=== PATIENT | male | born 1955 ===

== ENCOUNTER 2020-12-07 14:43 | Emergency (ER) | payer OTHER ==
[2020-12-07 15:10] VITALS: TEMP 98.5; BMI 25.6
[2020-12-07 16:40] LABS: BASO % 0.5 % (0-2.0); EOS % 4.5 % (0-4.5); HEMATOCRIT 33.5 % (35.4-49); HEMOGLOBIN 11.3 GM/dL (11.7-16.9); MCH 33.2 pg (25.7-33.7); MCHC 33.9 g/dl (32.0-35.9); MEAN PLT VOLUME 9.8 fl (7.5-11.1); MONO % 15.5 % (3.8-10.2); NEUT % 61.5 % (42.8-82.8); PLATELET COUNT 126 K/MM3 (134-434); RBC 3.42 M/mm3 (4.00-5.60); RDW 14.7 % (11.9-15.9); VENOUS O2 SATURATION 60.7 % (70-80); VENOUS PCO2 44.3 mmHg (38-52); VENOUS PH 7.444 (7.310-7.410); WHITE BLOOD COUNT 5.4 K/mm3 (4.0-10.0)
[2020-12-07 16:46] LABS: INR 0.91 (0.83-1.09); PROTHROMBIN TIME (PATIENT) 11.2 SEC (9.7-13.0)
[2020-12-07 16:59] LABS: CHLORIDE 97 mmol/L (98-107); POTASSIUM 3.4 mmol/L (3.5-5.1); SODIUM 136 mmol/L (136-145)
[2020-12-07 17:01] LABS: CALCIUM 10.1 mg/dL (8.5-10.1)
[2020-12-07 17:02] LABS: ALBUMIN 4.3 g/dl (3.4-5.0); ANION GAP 7 MMOL/L (8-16); BLOOD UREA NITROGEN 27.9 mg/dL (7-18); CO2 32 mmol/L (21-32); GLUCOSE,RANDOM 102 mg/dL (74-106); MAGNESIUM 2.3 mg/dL (1.8-2.4)
[2020-12-07 17:05] LABS: CREATININE 3.1 mg/dL (0.55-1.3); SGOT/AST 38 U/L (15-37); SGPT/ALT 48 U/L (13-61)
[2020-12-07 17:06] LABS: BILIRUBIN,TOTAL 0.5 mg/dL (0.2-1); TOT PROT 7.7 g/dl (6.4-8.2)
[2020-12-07 17:08] LABS: ALK PHOS 114 U/L (45-117)
[2020-12-07 18:12] VITALS: BP 177/72; PULSE 82
== END 2020-12-08 01:19 | disposition home or self-care (01) ==
LOC: JER 14:43
DX: R40.4 Transient alteration of awareness (principal)
CPT/HCPCS: 36415; 70450-TC; 71045-TC-FY; 80053; 80307; 82550; 82803; 82962; 83735; 84484; 85025; 85610; 86850; 86900; 86901; 93005; 93010; 99285-25